=== PATIENT | female | born 1975 | race Caucasian/White ===

== ENCOUNTER → 2020-01-13 11:20 | Outpatient (CLI) | payer OTHER, MEDICAID, SELFPAY ==
[2020-01-13 12:28] LABS: COVID19 -Nasal RAPID Negative (Negative)
== END ==
PROVIDERS: PCP Naturopath; Visit Provider Physician Assistant
DX: Z01.812 Encounter for preprocedural laboratory examination (principal); L73.2 Hidradenitis suppurativa
CPT/HCPCS: 87070; 87205; 87635

== ENCOUNTER 2020-01-13 13:01 | Day surgery (SDC) | payer OTHER, MEDICAID, SELFPAY ==
[2020-01-13] VITALS (10 sets, daily range): BP systolic 111–151; BP diastolic 73–103; PULSE 87–108; RESP 14–20; TEMP 36.2–36.7; O2SAT 92–99; BMI 38.4
[2020-01-13] MEDS: LACTATED RINGERS 1,000 ML 100 ML IV (15:03)
--- NOTE | 2020-01-13 15:29 | SUR.OPER ---
Lithotomy on padded OR bed, head on pillow, arms secured on padded arm boards at <90 degrees abduction. Legs secured in padded yellow fins stirrups.
[2020-01-13 15:30] LABS: Add Manual Diff / Slide Review NO; Basophils Absolute Auto 0 /uL (0-100); Basophils Percent Auto 0.4 % (0-2); Eosinophils Absolute Auto 100 /uL (0-450); Hematocrit 48.1 % (36-46); Hemoglobin 16.5 g/dL (12.0-16.0); Lymphocytes Absolute Auto 3800 /uL (1100-4500); Lymphocytes Percent Auto 28.8 % (25-40); Mean Corpuscular HGB Conc 34.4 % (30-36); Mean Corpuscular Hemoglobin 31.9 PG (26-34); Mean Corpuscular Volume 92.7 fL (80-100); Monocytes Absolute Auto 900 /uL (0-900); Monocytes Percent Auto 6.9 % (3-14); Neutrophils Absolute Auto 8200 /uL (1500-7000); Neutrophils Percent Auto 62.9 % (50-75); Platelet Count 247 X10^3/uL (150-400); Red Blood Cell Count 5.19 X10^6/uL (4.0-5.2); Red Cell Distribution Width 14.7 % (11.6-14.8)
[2020-01-13 15:39] LABS: BUN Creatinine Ratio 13.2 (6-22); Blood Urea Nitrogen 9 mg/dL (7-17); Calcium 9.3 mg/dL (8.4-10.2); Carbon Dioxide 23 mmol/L (22-32); Chloride 106 mmol/L (98-107); Estimated Glomerular Filt Rate > 60.0 mL/min (>60); Glucose 86 mg/dL (70-100); Potassium 4.4 mmol/L (3.4-5.1); Sodium 136 mmol/L (137-145)
[2020-01-13 15:40] LABS: HEMOLYSIS 70 (0-50)
[2020-01-13] MEDS: CEFAZOLIN 2 GM/100 ML FROZ.PIGGY IV (15:51)
[2020-01-13] MEDS: BUPIVACAINE 0.25% (PF) VIAL 30 ML INJ (16:12)
--- NOTE | 2020-01-13 16:27 | P.OP_ITS ---
Operative Date/Time/Diagnoses Date of procedure: 01/13/20 Time of procedure: 15:15 Pre-op diagnosis: labial abscess Post-op diagnosis: same Procedure & Clinicians Procedure: Labial abscess incision and drainage Same procedure as scheduled: Yes Indications: labial abscess in the setting of Surgeon: Orin Weinberg Professor Of Music: Katie Gotti Anesthesia Type: Sedation Operative Notes Findings: Right labial abscess, draining small amount of purulent discharge. 1cm smaller in each dimension than on previous exam in clinic. Specimen(s): none sent Estimated Blood Loss (mL): 5 Procedure in detail: The patient was taken the operating room after informed consent was obtained. She was placed in the dorsal lithotomy position and prepped and draped in the usual sterile fashion. 2 cc of 0.25% Marcaine were injected into the skin over the area of planned incision. A 10 blade scalpel used to make a 1 cm incision over the indurated area through the site of prior drainage. A small amount of purulent discharge was drained from the skin, but no large abscess pocket was revealed on incision. A Orin clamp was gently inserted into the incision and spread in order to evaluate for hidden pockets of purulent drainage, but no such change was found. No further areas of fluctuance or palpable, just induration, which had decreased in size significantly from the exam in the office 4 hours prior. No abscess cavity was present to be packed, so the patient was taken to the PACU in stable condition. The patient tolerated the procedure well and received 2 g of Ancef at the beginning of the case. Culture had been sent from the office, no further cultures were collected. EBL: Minimal IVF: 250ccs LR UOP: N/A Complications: none Post-operative Condition: stable Disposition: PACU Plan for aftercare: Patient to be discharged home, continue her Bactrim, follow- up in clinic tomorrow.
[2020-01-13] MEDS: fentaNYL 100 MCG/2 ML INJ IV ×2 (16:49→16:56)
[2020-01-13] MEDS: OXYCODONE IR 5 MG TABLET PO (16:51)
== END 2020-01-13 18:17 | disposition home or self-care (01) ==
LOC: OR 13:06 → AC 13:08
PROVIDERS: PCP Naturopath; Referring Provider Obstetrics & Gynecology; Visit Provider Obstetrics & Gynecology
PROC: (CPT 56405; principal; 2020-01-13 14:30)
DX: N76.4 Abscess of vulva (principal); F17.210 Nicotine dependence, cigarettes, uncomplicated; I10 Essential (primary) hypertension; E78.5 Hyperlipidemia, unspecified; E11.9 Type 2 diabetes mellitus without complications; Z79.84 Long term (current) use of oral hypoglycemic drugs; Z01.812 Encounter for preprocedural laboratory examination; L73.2 Hidradenitis suppurativa; Z11.59 Encounter for screening for other viral diseases
CPT/HCPCS: 56405; 80048; 85025; 87070; 87205; 87635; J0690; J2250; J2704; J3010

== ENCOUNTER → 2022-01-02 08:11 | Outpatient (CLI) | payer BC, OTHER, MEDICAID, SELFPAY ==
[2022-01-02 10:09] LABS: COVID19 -Nasal RAPID Negative (Negative)
== END ==
PROVIDERS: PCP Naturopath; Visit Provider Obstetrics & Gynecology
DX: Z01.812 Encounter for preprocedural laboratory examination (principal); Z20.822 Contact with and (suspected) exposure to COVID-19
CPT/HCPCS: 87635

== ENCOUNTER 2022-01-03 12:00 | Observation (INO) | payer BC, OTHER, MEDICAID, SELFPAY ==
[2022-01-02] VITALS (13 sets, daily range): BP systolic 123–174; BP diastolic 69–100; PULSE 72–100; RESP 16–28; TEMP 35.7–37; O2SAT 93–97; BMI 36.1
--- NOTE | 2022-01-02 | PATH_ITS ---
[facility] Accession Number: [id number] No. of containers..01 Tissue . 01 Material submitted: . vulva - LEFT LABIAL NEVUS . 01 Clinical history: . I/D OF VULVA ABSCESS *OPB* ABSCESS OF VULVA . 01 Diagnosis: Left Labial Lesion, Biopsy: Pigmented seborrheic keratosis. MRV 01/04/2022 1019 Local . 01 Comment: This case is also reviewed by dermatopathologist, Dr. Josh Beckett, who concurs with the given interpretation. . 01 Electronically signed: . Lu Austin MD, Pathologist NPI- [id number] . 01 Gross description: . LEFT LABIAL NEVUS: Received in formalin is 1 fragment of gupta soft tissue measuring 1.3 x 0.5 x 0.4 cm. Tissue is inked. Specimen is sectioned and submitted in its entirety in 1 cassette. /CATY 01/03/20222006 Local . 01 Pathologist provided ICD-10: L82.1 . 01 CPT . 896735 Specimen Comment: A courtesy copy of this report has been sent to [phone] Performed at: [address] [facility] [address] [place] [address] [address], [place], [place] [id number] MD Dequan Regalado MD Phone: [phone]
[2022-01-02] MEDS: LACTATED RINGERS 1,000 ML 100 ML IV (11:06)
[2022-01-02 11:23] LABS: Basophils Absolute Auto 100 /uL (0-100); Basophils Percent Auto 0.4 % (0-2); Eosinophils Absolute Auto 100 /uL (0-450); Eosinophils Percent Auto 1.1 % (2-4); Hematocrit 48.5 % (36-46); Hemoglobin 16.8 g/dL (12.0-16.0); Lymphocytes Absolute Auto 3800 /uL (1100-4500); Lymphocytes Percent Auto 32.3 % (25-40); Mean Corpuscular HGB Conc 34.6 % (30-36); Mean Corpuscular Hemoglobin 31.5 PG (26-34); Mean Corpuscular Volume 91.2 fL (80-100); Monocytes Absolute Auto 800 /uL (0-900); Monocytes Percent Auto 7.3 % (3-14); Neutrophils Absolute Auto 6800 /uL (1500-7000); Neutrophils Percent Auto 58.9 % (50-75); Platelet Count 248 X10^3/uL (150-400); Red Blood Cell Count 5.32 X10^6/uL (4.0-5.2); Red Cell Distribution Width 13.8 % (11.6-14.8); White Blood Cell Count 11.6 X10^3/uL (4.5-11.0)
[2022-01-02 11:26] LABS: Add Manual Diff / Slide Review SLIDE REVIEW
[2022-01-02 11:37] LABS: Alanine Aminotransferase 33 IU/L (<35); Albumin 4.2 g/dL (3.5-5.0); Albumin Globulin Ratio 1.4 (1.0-2.8); Alkaline Phosphatase 205 U/L (38-126); Aspartate Aminotransferase 29 IU/L (14-36); BUN Creatinine Ratio 13.6 (6-22); Bilirubin Total 0.5 mg/dL (0.2-1.3); Blood Urea Nitrogen 9 mg/dL (7-17); Calcium 8.7 mg/dL (8.4-10.2); Carbon Dioxide 24 mmol/L (22-32); Chloride 103 mmol/L (98-107); Estimated Glomerular Filt Rate > 60 mL/min (>60); Glucose 241 mg/dL (70-100); HEMOLYSIS < 15 (0-50); Potassium 4.1 mmol/L (3.4-5.1); Sodium 134 mmol/L (137-145); Total Protein 7.2 g/dL (6.3-8.2)
[2022-01-02 11:58] LABS: RBC Morphology Normal Morphology
--- NOTE | 2022-01-02 12:01 | SUR.PREOP ---
1140 Dr. Camacho informerd about blood sugar.
--- NOTE | 2022-01-02 12:27 | P.HP_ITS ---
History of Present Illness History of Present Illness Date Patient Seen: 01/02/22 Time Patient Seen: 12:27 Chief complaint: I&D OF VULVAR ABSCESS *OPB* Narrative: Patient is a 46-year-old 0 who presents today with a right labial abscess. She was seen by her primary care provider 5 days ago and this was opened. She was seen 4 days ago and was placed on antibiotics, Bactrim, and continues to take those. She was seen yesterday and the swelling was down a bit but the redness is worse. She is a type 2 diabetic. She is on a 1000 mg b.i.d. of metformin as well as glipizide once a day. She is not sure of that dose. She also is not sure what her most recent hemoglobin A1c is. She reports that her fasting blood sugars run high 100s to low 200s. She has a Mirena IUD in place to control her menstrual cycle. She has no history of MRSA. She took her last dose of metformin at 6:00 p.m. yesterday. She ate at 7:30 p.m. last evening. She has had a small amount of water since. Patient History Surgical History History of appendectomy Family & Social History Social History: household members spouse,family Tobacco & Substance use: Smoking Status Current every day smoker Smoking packs per day 1 alcohol intake frequency holiday/special occasion Substance Use Type does not use Meds Home Medications and Allergies Home Medications Medication Instructions Recorded Confirmed Type acetaminophen 500 mg tablet 500 mg PO Q6H PRN Pain (Scale 01/13/20 01/02/22 History Score 1-3) atorvastatin 40 mg tablet 40 mg PO DAILY 01/13/20 01/02/22 History clotrimazole-betamethasone 1 1 applictn topical BID 01/13/20 01/02/22 History %-0.05 % topical cream cyclobenzaprine 5 mg tablet 5 mg PO TID PRN Pain (Scale Score 01/13/20 01/02/22 History 1-3) ergocalciferol (vitamin D2) 1,250 1,250 mcg PO QWEEK 01/13/20 01/02/22 History mcg (50,000 unit) capsule fluoxetine 40 mg capsule 40 mg PO BID 01/13/20 01/02/22 History gabapentin 300 mg capsule 300 mg PO TID PRN Pain (Scale 01/13/20 01/02/22 History Score 1-3) glipizide 10 mg tablet 10 mg PO DAILY 01/13/20 01/02/22 History ibuprofen 800 mg tablet 800 mg PO TID PRN Pain (Scale 01/13/20 01/02/22 History Score 4-6) liraglutide 0.6 mg/0.1 mL (18 mg/3 0.6 mg SUBCUT DAILY 01/13/20 01/02/22 History mL) subcutaneous pen injector (Kadmonza 2-Jerel) metformin 500 mg tablet 1,000 mg PO BID 01/13/20 01/02/22 History omeprazole 20 mg capsule,delayed 20 mg PO BID PRN Indigestion 01/13/20 01/02/22 History release oxycodone 5 mg tablet 5 mg PO Q6H PRN pain #10 tabs 01/13/20 01/02/22 Rx sulfamethoxazole 800 1 tab PO BID 01/13/20 01/02/22 History mg-trimethoprim 160 mg tablet clindamycin phosphate 1 % topical 1 applictn topical BID 01/19/20 01/02/22 Rx gel Hidradenitis suppurativa #30 grams doxycycline hyclate 100 mg capsule 100 mg PO BID hidradenitis 01/23/20 01/02/22 Rx supperativa #60 caps Allergies Allergy/AdvReac Type Severity Reaction Status Date / Time morphine AdvReac Dysphoric Verified 01/25/20 15:50 Exam Vital Signs (past 8 hours): - 01/02/22 10:36 Temperature 97 F L Pulse Rate 97 H Respiratory Rate 16 Blood Pressure 136/88 Pulse Oximetry 97 Oxygen Delivery Method Room Air Oxygen Delivery Method Room Air Narrative Exam Narrative: HEENT: [No thyromegaly, no anterior cervical or supraclavicular lymphadenopathy.] Lungs:[Clear to auscultation bilaterally, no wheezes.] Cardiovascular: [Regular rate and rhythm, no murmurs, rubs, or gallops]. Abdomen: [Well-healed scars. No hepatosplenomegaly. No masses palpable.] External genitalia: The right labia minora is swollen and erythematous. It is tender to touch. There is fluctuance. There is a small open area from the previous incision and drainage. Patient also has erythematous areas with satellite lesions in the inguinal folds. Vagina: Did not exam Cervix: Did not exam Bimanual exam: Did not exam Extremities: No edema Objective Labs Result Diagrams: 01/02/22 10:50 01/02/22 10:50 Labs: Laboratory Results - last 24 hr 01/02/22 01/02/22 10:50 10:50 WBC 11.6 H RBC 5.32 H Hgb 16.8 H Hct 48.5 H MCV 91.2 MCH 31.5 MCHC 34.6 RDW 13.8 Plt Count 248 Neut % (Auto) 58.9 Lymph % (Auto) 32.3 Logan % (Auto) 7.3 Eos % (Auto) 1.1 L Baso % (Auto) 0.4 Neut # (Auto) 6800 Lymph # (Auto) 3800 [place] # (Auto) 800 Eos # (Auto) 100 Baso # (Auto) 100 RBC Morphology Normal morphology Sodium 134 L Potassium 4.1 Chloride 103 Carbon Dioxide 24 BUN 9 Creatinine 0.66 Estimated GFR > 60 BUN/Creatinine Ratio 13.6 Glucose 241 H Calcium 8.7 Total Bilirubin 0.5 AST 29 ALT 33 Alkaline Phosphatase 205 H Total Protein 7.2 Albumin 4.2 Globulin 3.0 Albumin/Globulin Ratio 1.4 Assessment & Plan Assessment & Plan narrative: Assessment: 46-year-old 0 with a right labial abscess and poorly controlled diabetes Yeast of the vulva Plan: Incision and drainage and possible packing of abscess IV antibiotics Will sent home with yeast treatment Possible overnight hospital stay The risks, benefits, and alternatives to the procedure were explained to the patient. The risks including bleeding and infection. She understands these risks and agrees to proceed. A full par Q was held and consent form was signed. COVID-19 COVID-19 status: Negative Result date/Date tested (Pos, Neg/Pending): 01/02/22 Time Spent With Patient Time with patient: less than 30 minutes Critical Care time: I spent a total of [] minutes of critical care time on this patient's care today; this time is exclusive of procedural time.
--- NOTE | 2022-01-02 12:27 | PM.GYNOP.1 ---
Operative Date/Time/Diagnoses Date of procedure: 01/02/22 Time of procedure: 14:26 Pre-op diagnosis: Right labia minora abscess Suspicious mole on the left labia Post-op diagnosis: same Procedure & Clinicians Procedure: Procedures Operation Date: 01/02/22 12:00 <No data on this case meets the specified criteria> Indications: Abscess of the right labia minora Suspicious 1 cm mole on the left labia minora Surgeon: Katie Gotti Anesthesia Type: General Operative Notes Findings: 8 cm her by 5 cm by 3 cm abscess in the right labia minora 1 cm x 0.75 cm nevus of the left labia minora Closure Type: not applicable Specimen(s): other (Cultures of the abscess) Estimated blood loss (mL): 10 Blood products transfused: none Procedure in detail: After informed consent was obtained, the patient was taken to the operating room where she was placed in the dorsal supine position. After adequate general endotracheal anesthesia was achieved, she was placed in the dorsal lithotomy position, and prepped and draped in the usual sterile fashion. A time-out was performed. On the left labia an elliptical incision was made measuring 1.5 x 1 cm to include the nevus. The nevus was excised. Four simple interrupted sutures with 4-0 Vicryl were placed to reapproximate. In the midportion of the right labia minora there was a small opening with pus. This was extended to 3 cm. A large amount of pus extruded from the wound. Cultures were obtained. A hemostat was used to break up any smaller pockets. The area was irrigated with a L of sterile saline. The wound was packed with approximately 14 in of 1 in iodoform gauze. There was a small area that was bleeding from the lower edge of the incision. This was cauterized with the Bovie for hemostasis. Sponge, lap, and instrument counts were correct x2. The patient tolerated the procedure well, and was taken to PACU in stable condition. Complications: none Post-operative Condition: stable Disposition: PACU Plan for aftercare: To acute care after recovery
--- NOTE | 2022-01-02 12:32 | PM.PREOP ---
Pre-operative Note COVID-19 COVID-19 status: Negative Result date/Date tested (Pos, Neg/Pending): 01/02/22 Criteria for continued procedure: Deterioration of the patient's condition or overall health and Non-surgical alternatives not available or appropriate per current SOC Interval Note History & Physical reviewed/Exam performed by Physician: Yes Changes to H&P: No H&P completed within 30 days and has changed as indicated here:: 01/02/22
[2022-01-02] MEDS: INSULIN REGULAR 100 UNIT/ML 3 ML VIAL SUBCUT (12:42)
[2022-01-02] MEDS: FAMOTIDINE 20 MG/2 ML VIAL IV (12:44)
--- NOTE | 2022-01-02 13:29 | SUR.OPER ---
Lithotomy on padded OR bed, head on pillow, arms secured on padded arm boards at <90 degrees abduction. Legs secured in padded yellow fins stirrups. Patients glasses placed in black glass case with patient ID label. While on or table, pt voided during intubation, mio care provided prior to sterile prep.
[2022-01-02] MEDS: EPINEPHrine 1 MG/ML 0.15 MG INJ (13:33)
[2022-01-02] MEDS: BUPIVACAINE 0.5% (PF) VIAL 30 ML INJ (13:34)
[2022-01-02] MEDS: PIPERACILLIN/TAZO 4.5 GM in SODIUM CHLORIDE 0.9% 100 ML IV (13:35)
[2022-01-02] MEDS: LACTATED RINGERS 1,000 ML 42 ML IV ×2 (14:07→14:13)
[2022-01-02] MEDS: ALBUTEROL 2.5 MG/3 ML NEB (ADULT) INH (14:09)
[2022-01-02] MEDS: ONDANSETRON 4 MG/2 ML INJ IV (14:12)
[2022-01-02] MEDS: fentaNYL 100 MCG/2 ML INJ IV ×2 (14:12→14:22)
--- NOTE | 2022-01-02 14:25 | SUR.PHASEI ---
Duoneb completed; patient in no distress and maintaining oxygen saturation at 94% on room air. Drinking water without difficulty.
--- NOTE | 2022-01-02 14:34 | SUR.PHASEI ---
Notified Anesthesia of Blood sugar 211; no new orders. Anesthesia defers to inpatient orders on transfer. No insulin ordered for pacu.
[2022-01-02] MEDS: OXYCODONE/ACETAMINOPHEN 5/325 TABLET 1 TAB PO (14:39)
--- NOTE | 2022-01-02 15:51 | PC.NURSE ---
admit pt to AC from PACU. VSS. bloody drainage to mio-pad, changed with new mesh pad/mio-pad placed. ice pack for comfort. Tail of packing to labia apparent. Per pt is having procedure 01/03 @ 1000 to have packing removed/replaced by . Supportive spouse at bedside. ADA nutrition provided to pt. Pt oriented to call light and plan of care.
[2022-01-02] MEDS: NICOTINE 21 MG PATCH TOP (16:24)
[2022-01-02] MEDS: KETOROLAC 30 MG/ML VIAL IV ×2 (16:25→20:46)
[2022-01-02] MEDS: OXYCODONE IR 5 MG TABLET 10 MG PO (16:25)
[2022-01-02] MEDS: SODIUM CHLORIDE 0.9% 1,000 ML 100 ML IV (16:25)
[2022-01-02] MEDS: INSULIN LISPRO 100 UNIT/ML 3ML VIAL SUBCUT ×2 (17:20→21:14)
--- NOTE | 2022-01-02 17:40 | PM.CN ---
History of Present Illness Consult details Date Patient Seen: 01/02/22 Chief complaint: I&D OF VULVAR ABSCESS *OPB* Reason for consult: Diabetes mellitus type 2, uncontrolled Requesting provider: Katie Gotti Narrative: 46-year-old female with diabetes mellitus type 2, hidradenitis suppurativa, ongoing tobacco dependence, and class 2 obesity who presented to the emergency department for incision and drainage of a right labia minora abscess. Reports onset of hidradenitis symptoms when she was approximately 13-year-old. She states that she has required a prior labia abscess incision and drainage. She has had some that affected her at [facility] she was able to treat Omron. With regard to her current abscess, she reports that it started several months ago and she initially thought it was a blocked pore. She left it alone but approximately 5 days ago, her labia swelled, became more red and indurated. She was seen in the clinic and underwent I and D in the office. She was given a prescription for an antibiotic and pain medications. When they drained it, reportedly it was purulent material. It was not passed and she return for follow-up the following day and notes that the labia was much more swollen indurated and painful. There was not a repeat I&D performed. She was then given a prescription for Bactrim and some additional pain medications. She will return to the clinic yesterday with ongoing symptoms. She was subsequently referred to Dr. Gotti who evaluated the ends brought the patient into the hospital for an incision and drainage in the operating room. Patient reports that she was diagnosed with diabetes mellitus in 2013. She has never required insulin. She states her last hemoglobin A1c was around 6.9-7.1. She reports it has been quite sometime since she had an A1c done. She does not tolerate metformin well but has been on glipizide and Victoza. She states that sugars ranged from 90s to 100 in the morning but up to the mid 200s in the afternoons. She is an active smoker, 1 pack per day. Meds Home Medications and Allergies Home Medications Medication Instructions Recorded Confirmed Type acetaminophen 500 mg tablet 500 mg PO Q6H PRN Pain (Scale 01/13/20 01/02/22 History Score 1-3) atorvastatin 40 mg tablet 40 mg PO DAILY 01/13/20 01/02/22 History clotrimazole-betamethasone 1 1 applictn topical BID 01/13/20 01/02/22 History %-0.05 % topical cream cyclobenzaprine 5 mg tablet 5 mg PO TID PRN Pain (Scale Score 01/13/20 01/02/22 History 1-3) ergocalciferol (vitamin D2) 1,250 1,250 mcg PO QWEEK 01/13/20 01/02/22 History mcg (50,000 unit) capsule fluoxetine 40 mg capsule 40 mg PO BID 01/13/20 01/02/22 History gabapentin 300 mg capsule 300 mg PO TID PRN Pain (Scale 01/13/20 01/02/22 History Score 1-3) glipizide 10 mg tablet 10 mg PO DAILY 01/13/20 01/02/22 History ibuprofen 800 mg tablet 800 mg PO TID PRN Pain (Scale 01/13/20 01/02/22 History Score 4-6) liraglutide 0.6 mg/0.1 mL (18 mg/3 0.6 mg SUBCUT DAILY 01/13/20 01/02/22 History mL) subcutaneous pen injector ([employer] 2-Jerel) metformin 500 mg tablet 1,000 mg PO BID 01/13/20 01/02/22 History omeprazole 20 mg capsule,delayed 20 mg PO BID PRN Indigestion 01/13/20 01/02/22 History release oxycodone 5 mg tablet 5 mg PO Q6H PRN pain #10 tabs 01/13/20 01/02/22 Rx sulfamethoxazole 800 1 tab PO BID 01/13/20 01/02/22 History mg-trimethoprim 160 mg tablet clindamycin phosphate 1 % topical 1 applictn topical BID 01/19/20 01/02/22 Rx gel Hidradenitis suppurativa #30 grams doxycycline hyclate 100 mg capsule 100 mg PO BID hidradenitis 01/23/20 01/02/22 Rx supperativa #60 caps Allergies Allergy/AdvReac Type Severity Reaction Status Date / Time morphine AdvReac Dysphoric Verified 01/25/20 15:50 Review of Systems Review of Systems Narrative: All other systems were reviewed negative Exam Vital Signs (past 8 hours): - 01/02/22 10:36 01/02/22 14:01 01/02/22 14:05 Temperature 97 F L 97 F L Pulse Rate 97 H 93 H 95 H Respiratory Rate 16 28 H 21 Blood Pressure 136/88 139/90 146/91 H Pulse Oximetry 97 93 96 Oxygen Delivery Method Room Air Room Air Room Air Oxygen Flow Rate 01/02/22 14:10 01/02/22 14:15 01/02/22 14:20 Temperature Pulse Rate 89 89 91 H Respiratory Rate 22 18 22 Blood Pressure 152/93 H 141/85 H 153/92 H Pulse Oximetry 95 94 94 Oxygen Delivery Method Simple Mask Simple Mask Room Air Oxygen Flow Rate 5 01/02/22 14:31 01/02/22 15:00 01/02/22 15:29 Temperature 98.6 F 97.9 F Pulse Rate 100 H 92 H 72 Respiratory Rate 23 17 17 Blood Pressure 162/89 H 174/100 H 148/69 H Pulse Oximetry 95 96 96 Oxygen Delivery Method Room Air Oxygen Flow Rate 0 0 01/02/22 15:57 01/02/22 10:07 01/02/22 17:00 Temperature 96.3 F L 98.3 F Pulse Rate 94 H 92 H Respiratory Rate 18 17 Blood Pressure 123/87 142/78 H Pulse Oximetry 94 95 Oxygen Delivery Method Room Air Oxygen Flow Rate 0 0 Oxygen Delivery Method Room Air Oxygen Flow Rate 0 Narrative Exam Narrative: GEN: Adult female, pleasant, Alert and oriented x3, no acute distress HEENT: Normocephalic, face symmetric, pupils equal round reactive to light, extraocular movements intact, sclerae anicteric, conjunctiva clear, nares patent, oropharynx reveals an intact soft and hard palate with moist mucous membranes, dentition is fair, hirsutism is noted NECK: Supple, no lymphadenopathy, thyroid without enlargement or nodularity, carotids no bruits CHEST: Respiratory excursions symmetric, clear to auscultation bilaterally CV: Regular rate and rhythm, no murmurs, rubs, gallops, PMI difficult to palpate ABD: Soft, nontender, nondistended, bowel sounds present in all 4 quadrants, body habitus limits exam EXTR: Warm, well perfused, no clubbing/cyanosis/edema SKIN: Warm and dry, without rash, old scars from previous hidradenitis cyst in the ex the left, current abscess was not visualized NEURO: Alert and oriented x3, cranial nerves 2 through 12 are intact and symmetric bilaterally, motor strength 5/5 throughout, sensation intact throughout PSYCH: Mood and affect is within normal limits, judgment and insight are appropriate Objective Labs Result Diagrams: 01/02/22 10:50 01/02/22 10:50 Labs: Laboratory Results - last 24 hr 01/02/22 01/02/22 10:50 10:50 WBC 11.6 H RBC 5.32 H Hgb 16.8 H Hct 48.5 H MCV 91.2 MCH 31.5 MCHC 34.6 RDW 13.8 Plt Count 248 Neut % (Auto) 58.9 Lymph % (Auto) 32.3 [place] % (Auto) 7.3 Eos % (Auto) 1.1 L Baso % (Auto) 0.4 Neut # (Auto) 6800 Lymph # (Auto) 3800 [place] # (Auto) 800 Eos # (Auto) 100 Baso # (Auto) 100 RBC Morphology Normal morphology Sodium 134 L Potassium 4.1 Chloride 103 Carbon Dioxide 24 BUN 9 Creatinine 0.66 Estimated GFR > 60 BUN/Creatinine Ratio 13.6 Glucose 241 H Calcium 8.7 Total Bilirubin 0.5 AST 29 ALT 33 Alkaline Phosphatase 205 H Total Protein 7.2 Albumin 4.2 Globulin 3.0 Albumin/Globulin Ratio 1.4 [facility] Surgical History History of appendectomy Comment: Past medical history: Hidradenitis suppurativa Diabetes mellitus type 2, not insulin dependent Class 2 obesity Active tobacco dependence Family history: Mother, maternal grandparents and maternal aunt all had diabetes Social history: She and her partner have been together for 9 years. She has no children. One pack of cigarettes daily for 25 years. She does not drink, no recreational drug use.. Social History household members: spouse and family Tobacco & Substance Use Smoking Status: Current every day smoker alcohol intake: current Assessment & Plan Assessment & Plan narrative: 1. Hidradenitis suppurativa with a luis right labial abscess status post I&D On going antibiotics and treatment per Gynecology. She is currently receiving Zosyn therapy. White blood cell count 11.6. Appears nontoxic. Cultures pending. 2. Diabetes mellitus type 2, treated with oral medication Presently uncontrolled with hyperglycemia. Glucose was 241 on today's labs. Will place on a controlled carb diet. Fingersticks and sliding scale have been ordered. Will hold glipizide, Metformin and Victoza for now. Will send a hemoglobin A1c 3. Class 2 obesity BMI is 36.1. Would benefit from weight reduction. 4. Tobacco dependence Nicotine patch has been ordered. 5. Hyperlipidemia Continue atorvastatin. 6. Chronic neck pain with right arm paresthesia She has had a prior neck fusion. She reports some right arm Paresthesias which are chronic in nature. 7. Depression Continue outpatient dose of fluoxetine Code status Full Prophylaxis Low Adri score Disposition Per Dr. Gotti/[employer] service. Time Spent With Patient Critical Care time: I spent a total of [] minutes of critical care time on this patient's care today; this time is exclusive of procedural time.
--- NOTE | 2022-01-02 18:11 | PC.NURSE ---
Pt is AxOx4, 1 person assistance to the bedside commode. VSS, BP is lighlty high 160s, HR is tachy due to pain. pt c/o pain in her incision area ( vagina/R labia) and PRN Toradol IV and Oxycodone 10mg PO given with good effect. BG-332 bc pt ate something before dinner came. 4 units of Lispro given and pt ate 100%. Pt has Nicotine patch on and RA. Otherwise, pt is doing well. Last BM on 01/02. No other changes.
[2022-01-02 18:21] LABS: Hemoglobin A1C% w Est Avg Glu 10.6 % (4.0-6.0)
[2022-01-02] MEDS: PIPERACILLIN/TAZO 3.375 GM in SODIUM CHLORIDE 0.9% 100 ML IV (20:46)
[2022-01-02] MEDS: FLUoxetine 20 MG CAPSULE 40 MG PO (20:47)
[2022-01-02] MEDS: DOCUSATE 100 MG CAPSULE 200 MG PO (20:47)
[2022-01-03] VITALS (15 sets, daily range): BP systolic 130–160; BP diastolic 68–95; PULSE 78–90; RESP 16–20; TEMP 35.9–36.8; O2SAT 94–98; BMI 36.1
[2022-01-03] MEDS: OXYCODONE/ACETAMINOPHEN 5/325 TABLET 1 TAB PO ×2 (00:38→08:18)
[2022-01-03] MEDS: KETOROLAC 30 MG/ML VIAL IV ×3 (04:27→20:06)
[2022-01-03] MEDS: PIPERACILLIN/TAZO 3.375 GM in SODIUM CHLORIDE 0.9% 100 ML IV ×3 (04:27→20:58)
[2022-01-03] MEDS: SODIUM CHLORIDE 0.9% 1,000 ML 100 ML IV ×2 (04:31→17:43)
--- NOTE | 2022-01-03 05:09 | PM.PN.1 ---
Subjective Subjective Date Patient Seen: 01/03/22 Time Patient Seen: 14:00 Interval history: Patient having pain after surgery and requesting Toradol. Would also like nicotine patch. Exam Vital Signs (past 8 hours): - 01/03/22 04:44 Temperature 98.1 F Pulse Rate 81 Respiratory Rate 16 Blood Pressure 155/87 H Pulse Oximetry 94 Oxygen Flow Rate 0 Oxygen Delivery Method Room Air Oxygen Flow Rate 0 Narrative Exam Narrative: GEN: Adult female, pleasant, Alert and oriented x3, no acute distress HEENT: Normocephalic, face symmetric, pupils equal round reactive to light, extraocular movements intact, sclerae anicteric, conjunctiva clear, nares patent, oropharynx reveals an intact soft and hard palate with moist mucous membranes, dentition is fair, hirsutism is noted NECK: Supple, no lymphadenopathy, thyroid without enlargement or nodularity, carotids no bruits CHEST: Respiratory excursions symmetric, clear to auscultation bilaterally CV: Regular rate and rhythm, no murmurs, rubs, gallops, PMI difficult to palpate ABD: Soft, nontender, nondistended, bowel sounds present in all 4 quadrants, body habitus limits exam EXTR: Warm, well perfused, no clubbing/cyanosis/edema SKIN: Warm and dry, without rash, old scars from previous hidradenitis cyst in the ex the left, current abscess was not visualized NEURO: Alert and oriented x3, cranial nerves 2 through 12 are intact and symmetric bilaterally, motor strength 5/5 throughout, sensation intact throughout PSYCH: Mood and affect is within normal limits, judgment and insight are appropriate Objective Labs Result Diagrams: 01/03/22 05:45 01/02/22 10:50 Labs: Laboratory Results - last 24 hr 01/02/22 01/02/22 01/02/22 10:50 10:50 15:50 WBC 11.6 H RBC 5.32 H Hgb 16.8 H Hct 48.5 H MCV 91.2 MCH 31.5 MCHC 34.6 RDW 13.8 Plt Count 248 Neut % (Auto) 58.9 Lymph % (Auto) 32.3 [place] % (Auto) 7.3 Eos % (Auto) 1.1 L Baso % (Auto) 0.4 Neut # (Auto) 6800 Lymph # (Auto) 3800 [place] # (Auto) 800 Eos # (Auto) 100 Baso # (Auto) 100 RBC Morphology Normal morphology Sodium 134 L Potassium 4.1 Chloride 103 Carbon Dioxide 24 BUN 9 Creatinine 0.66 Estimated GFR > 60 BUN/Creatinine Ratio 13.6 Glucose 241 H Hemoglobin A1c 10.6 H Calcium 8.7 Total Bilirubin 0.5 AST 29 ALT 33 Alkaline Phosphatase 205 H Total Protein 7.2 Albumin 4.2 Globulin 3.0 Albumin/Globulin Ratio 1.4 PFSH Surgical History History of appendectomy Social History household members: spouse and family Smoking Status: Current every day smoker alcohol intake: current Assessment & Plan Assessment & Plan narrative: 1. Hidradenitis suppurativa with a luis right labial abscess status post I&D On going antibiotics and treatment per Gynecology. She is currently receiving Zosyn therapy. White blood cell count 11.6. Appears nontoxic. Cultures pending. -Start toradol IV q6h PRN 2. Diabetes mellitus type 2, treated with oral medication Presently uncontrolled with hyperglycemia. Glucose was 241 on today's labs. Will place on a controlled carb diet. Fingersticks and sliding scale have been ordered. Will hold glipizide, Metformin and Victoza for now. -A1c 10.6% -Start lantus 15u daily -Diabetes education consulted -Recommend outpatinet follow-up with endocrinology for ongoing DM2 management and obtaining CGM device. 3. Class 2 obesity BMI is 36.1. Would benefit from weight reduction. 4. Tobacco dependence Nicotine patch has been ordered. 5. Hyperlipidemia Continue atorvastatin. 6. Chronic neck pain with right arm paresthesia She has had a prior neck fusion. She reports some right arm Paresthesias which are chronic in nature. 7. Depression Continue outpatient dose of fluoxetine. Code status Full Prophylaxis Low Adri score Disposition D/c on 01/[address] Gotti. Time Spent With Patient Critical Care time: I spent a total of [] minutes of critical care time on this patient's care today; this time is exclusive of procedural time. Quality VTE Deep Vein Thrombosis/Pulmonary Embolism Present on Admission: Yes
[2022-01-03 06:14] LABS: Add Manual Diff / Slide Review NO; Basophils Absolute Auto 100 /uL (0-100); Basophils Percent Auto 0.5 % (0-2); Eosinophils Absolute Auto 100 /uL (0-450); Eosinophils Percent Auto 0.7 % (2-4); Hematocrit 44.8 % (36-46); Hemoglobin 15.3 g/dL (12.0-16.0); Lymphocytes Absolute Auto 3300 /uL (1100-4500); Lymphocytes Percent Auto 27.9 % (25-40); Mean Corpuscular HGB Conc 34.2 % (30-36); Mean Corpuscular Hemoglobin 31.5 PG (26-34); Mean Corpuscular Volume 92.2 fL (80-100); Monocytes Absolute Auto 900 /uL (0-900); Monocytes Percent Auto 7.5 % (3-14); Neutrophils Absolute Auto 7400 /uL (1500-7000); Neutrophils Percent Auto 63.4 % (50-75); Platelet Count 202 X10^3/uL (150-400); Red Blood Cell Count 4.86 X10^6/uL (4.0-5.2); Red Cell Distribution Width 13.8 % (11.6-14.8); White Blood Cell Count 11.7 X10^3/uL (4.5-11.0)
[2022-01-03] MEDS: LACTATED RINGERS 1,000 ML 84 ML IV (10:14)
--- NOTE | 2022-01-03 10:32 | PM.PREOP ---
Pre-operative Note COVID-19 COVID-19 status: Negative Result date/Date tested (Pos, Neg/Pending): 01/02/22 Criteria for continued procedure: Non-surgical alternatives not available or appropriate per current SOC Interval Note History & Physical reviewed/Exam performed by Physician: Yes Changes to H&P: No H&P completed within 30 days and has changed as indicated here:: 01/02/22
--- NOTE | 2022-01-03 10:56 | SUR.OPER ---
Lithotomy on padded OR bed, head on pillow, arms secured on padded arm boards at <90 degrees abduction. Legs secured in padded yellow fins stirrups.
--- NOTE | 2022-01-03 11:00 | PM.GYNOP.1 ---
Operative Date/Time/Diagnoses Date of procedure: 01/03/22 Time of procedure: 11:01 Pre-op diagnosis: Right labial abscess Post-op diagnosis: same Procedure & Clinicians Procedure: Procedures Operation Date: 01/02/22 12:00 Actual Procedure Side Surgeon p Incision and Drainage of Right Labial Abscess and Excision of Left labial Nevus Katie Gotti MD Operation Date: 01/03/22 10:15 Actual Procedure Side Surgeon p removal and exchange of packing change Katie Gotti MD Indications: Packing in a right labial abscess Surgeon: Katie Gotti Anesthesia Type: Sedation Operative Notes Findings: Small improvement from yesterday Closure Type: not applicable Specimen(s): none Estimated blood loss (mL): 0 Blood products transfused: none Procedure in detail: After informed consent was obtained, the patient was taken to the operating room where she was placed in the dorsal supine position. After adequate IV sedation, the patient was placed in the dorsal lithotomy position, and prepped and draped in the usual sterile fashion. The previous packing was removed. The wound was irrigated with 180 cc sterile saline. The wound was probed to make sure there were no new pockets. The wound was packed with 14 in of 1 in iodoform gauze. Complications: none Post-operative Condition: stable Disposition: PACU Plan for aftercare: To acute care after recovery
[2022-01-03] MEDS: OXYCODONE IR 5 MG TABLET 10 MG PO (11:13)
--- NOTE | 2022-01-03 11:27 | SUR.PHASEI ---
Report called to Elizabeth RAMIREZ and opportunity for questions given. Pt returning to room 213. pt updated on plan of care and is agreeable.
[2022-01-03] MEDS: INSULIN LISPRO 100 UNIT/ML 3ML VIAL SUBCUT ×3 (12:30→20:59)
[2022-01-03] MEDS: NICOTINE 21 MG PATCH TOP (12:41)
--- NOTE | 2022-01-03 12:47 | CM.DANOTE ---
Addendum entered by Jo-Ann Hong 01/03/22 15:28: DCP continued note Dr. Gotti endorses that she put in wound care referral and the next available appt for patient is 01/11/22 at 13:45. It is reported that patient will likely d/c tomorrow and receive daily wound care by OBGYN clinic until wound care appt. MEDICAL OFFICER calls wound care clinic and inquires about the above appt, it is reported that the time is blocked for patient and they are in need of wound care referral. MEDICAL OFFICER faxes wound care orders from Dr. Gotti with face sheet. Plan: f/u with wound care (ext. [phone]) to see if anything further is needed regarding wound care referral. Patient likely to d/c tomorrow. GARO Cohn Original Note: DCP Assessment Patient is 46 y/o female who had labial abscess surgery on 01/03/[address] Gotti. Patient has hx of type 2 diabetes. Patient's PCP is Dr. Skylar Cespedes. Patient has [employer] and Medicaid insurance. MEDICAL OFFICER enters room to meet with patient, present is patient's spouse Valeria. Patient presents as A/Ox3 and states she is doing alright. Patient is independent with ADLs at baseline. Spouse and patient endorse that Dr. Gotti spoke to them about referrals for outpatient wound care. Patient denies further DCP needs at this time. Spouse endorses that she can care for patient's needs. Plan: patient to d/c to home with spouse upon medical clearance, possibly today. Patient to f/u with wound care referral. No further DCP needs at this time. GARO Cohn Discharge Planning/Care Management CM Discharge Assessment Start: 01/03/22 12:32 Freq: Status: Active Protocol: Document 01/03/22 12:33 LN (Rec: 01/03/22 12:47 LN [id number]) Discharge Planning Assessment Assigned Outreach Specialist GARO Busch Advance Directives? No History Provided By Patient,Family Member,Medical Record Has Patient been admitted in last 30 No days? Prior Living Arrangements House Household Members spouse,family Type of transportation used prior to Drives own vehicle admit Independent with ADL's Yes: at baseline Is patient alert and oriented? Yes Needs Assistance With Grooming Comment Patient will need assistance with wound care and cleaning. Per patient, Dr. Gotti has been working on arranging out patient wound care. Caregiver for Another No Please Provide Date Initial DC 01/03/22 Assessment Was Performed
--- NOTE | 2022-01-03 15:26 | DIET.CONS2 ---
Dietary Inpatient Consultation Note Admission Date: 01/03/2022 12:00 Attempted to visit c pt after lunch, pt sleeping, pt spouse requests coming back in an hour. Plan to visit c pt at 3:45pm for DM ed. Diet: 01/03/22 Lunch Carbohydrate Consistent Diet Diet Modifications: Carbohydrate level: Medium (3 CHO) Bedtime snack: Yes 01/04/22 00:01 NPO Diet Diet Modifications: NPO Type: NPO except for Ice Chips Nutrition Percent Meal Consumed 100% 01/03/22 13:00 Percent Meal Consumed 100% 01/02/22 17:27 Electronically Signed by: Elsa Deshpande 01/03/22 15:26 Clinical Dietitian [address] [address]
--- NOTE | 2022-01-03 15:44 | PC.NURSE ---
Pt was in surgery from 1000 to 1140 Alert/oriented. IVF NS infusing into the RAC as per MD orders. Small amount of drainageon mio pad Mio area swollen, reddened w/incision on right vulva Med w/torodol w/good relief. Call light w/in reach, bed alarm on for pt safety. Continue w/plan of care,
--- NOTE | 2022-01-03 16:37 | P.PN_ITS ---
Subjective Subjective Date Patient Seen: 01/03/22 Time Patient Seen: 14:00 Interval history: Patient is a 46-year-old postop day # 1 status post an incision and drainage and packing of a right labia majora abscess. She was taken back to the operating room today to remove the packing and replace it. The erythema is decreased. A sharpie was used to outline the area of erythema. She is on IV Zosyn. She is also on Diflucan for a yeast infection of the inguinal folds. Her pain is well controlled with Toradol. There was minimal bleeding when the packing was removed. A referral was made to the wound clinic and she tentatively has an appointment on January 11, 2022. Exam Vital Signs (past 8 hours): - 01/03/22 10:03 01/03/22 11:05 01/03/22 11:10 Temperature 97.6 F 96.7 F L Pulse Rate 78 90 89 Respiratory Rate 20 19 19 Blood Pressure 143/86 H 130/81 138/74 Pulse Oximetry 97 95 94 Oxygen Delivery Method Room Air Room Air Room Air Oxygen Flow Rate 01/03/22 11:15 01/03/22 11:20 01/03/22 11:25 Temperature 97.4 F L Pulse Rate 84 83 84 Respiratory Rate 19 18 20 Blood Pressure 133/95 H 140/83 135/81 Pulse Oximetry 95 94 95 Oxygen Delivery Method Room Air Room Air Room Air Oxygen Flow Rate 01/03/22 10:46 01/03/22 12:00 01/03/22 12:30 Temperature 98.0 F Pulse Rate 79 86 Respiratory Rate 20 18 Blood Pressure 140/86 149/91 H Pulse Oximetry 97 96 96 Oxygen Delivery Method Oxygen Flow Rate 0 0 01/03/22 13:00 01/03/22 16:00 Temperature Pulse Rate 83 Respiratory Rate 18 Blood Pressure 147/88 H Pulse Oximetry 98 96 Oxygen Delivery Method Oxygen Flow Rate 0 Oxygen Delivery Method Room Air Oxygen Flow Rate 0 Narrative Exam Narrative: Generally: Patient lying in bed, no acute distress Vulva: Still some erythema but decreased from yesterday pre procedure. No tenderness to touch. Objective Labs Result Diagrams: 01/03/22 05:45 01/02/22 10:50 Labs: Laboratory Results - last 24 hr 01/02/22 01/03/22 15:50 05:45 WBC 11.7 H RBC 4.86 Hgb 15.3 Hct 44.8 MCV 92.2 MCH 31.5 MCHC 34.2 RDW 13.8 Plt Count 202 Neut % (Auto) 63.4 Lymph % (Auto) 27.9 [place] % (Auto) 7.5 Eos % (Auto) 0.7 L Baso % (Auto) 0.5 Neut # (Auto) 7400 H Lymph # (Auto) 3300 [place] # (Auto) 900 Eos # (Auto) 100 Baso # (Auto) 100 Hemoglobin A1c 10.6 H PFSH Surgical History History of appendectomy Social History household members: spouse and family Smoking Status: Current every day smoker alcohol intake: current Assessment & Plan Post-op Postoperative Procedures: Procedures Operation Date: 01/02/22 12:00 Actual Procedure Side Surgeon p Incision and Drainage of Right Labial Abscess and Excision of Left labial Nevus Katie Gotti MD Operation Date: 01/03/22 10:15 Actual Procedure Side Surgeon p removal and exchange of packing from Right Labia Katie Gotti MD Operation Date: 01/04/22 12:45 <No data on this case meets the specified criteria> Postoperative day: 1 Postoperative status: doing well Postoperative status narrative: Will attempt to do a bedside packing changed tomorrow If not able to do at the bedside we tentatively have a spot in the operating room Will have to arrange daily packing changes until wound clinic appointment Wound clinic appointment January 11, 2022 Will add probiotics Quality VTE Deep Vein Thrombosis/Pulmonary Embolism Present on Admission: Yes
--- NOTE | 2022-01-03 16:52 | DIET.CONS ---
Dietary Consultation Note Admission Date: 01/03/2022 12:00 Assessment: 46y F admitted for I&D of vulvar abscess referred to nutrition for A1c 10.6. 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 Pt prescribed metformin 1,000mg bid, Victoza 0.6mg daily, and glipizide 10mg daily, however, pt not taking metformin secondary to GI distress. Pt reports good FBGs as 140-185 and bad FBG 195+. Pt with multiple I&D of vulva abscesses over the years as pt has hidradenitis. Pt has been working for the past few months at a [employer] with cyclic shift work- 12h rotating shifts with 6 days on, 3 days off. Pt states this has been stressful. Pt and spouse report healthful diet. Pt uses monkfruit in coffee in morning, meals are often protein with veg. Pt states downfall is full-sugar soda consumption. Pt a fan of Dr. Ortez, drinks more than 1 can daily (up to 4), which spouse states is vast improvement from 10y ago when pt only drank soda, no water. Now pt drinks 2L water daily. Pt excited to get referral to promotions executive producer at [facility]. Open to DM education at for support. Of note, pts body weight has dropped 8% since starting Victoza which is in line with potentially positive medication side effects. Ht: 160.02 cm Wt: 92.533 kg BMI: 36.1 UBW: 98-100kg Last BM: 01/02/22 (01/02/22 10:07) MNA: 11 Hayes Score: 22 Diet: 01/03/22 Lunch Carbohydrate Consistent Diet Diet Modifications: Carbohydrate level: Medium (3 CHO) Bedtime snack: Yes Nutrition Percent Meal Consumed 100% 01/03/22 13:00 Percent Meal Consumed 100% 01/02/22 17:27 Labs: RBC 4.86 X10^6/uL (4.0-5.2) 01/03/22 05:45 Hgb 15.3 g/dL (12.0-16.0) 01/03/22 05:45 Hct 44.8 % (36-46) 01/03/22 05:45 Creatinine 0.66 mg/dL (0.52-1.04) 01/02/22 10:50 Hemoglobin A1c 10.6 % (4.0-6.0) H 01/02/22 15:50 Nutrition Diagnosis: altered nutrition related laboratory values (A1c) r/t endocrine dysfunction and excessive intake simple carbohydrates aeb A1c 10.6 despite use of glipizide and victoza, pt admitted for I&D of abscess, pt reports daily consumption sugar-sweetened sodas. Interventions: 1. Using motivational interviewing and behavior change strategies-discussed intake sugar sweetened beverages. Discussed alternate options including mini 8oz can, diet version, stevia version, occasional use. Empathized with pt on difficulty of plater hot dip DM management and DM distress. Discussed sx chronic hyperglycemia and dramatically decreased sx once BGs normalized. 2. Educated pt and spouse on effects of BGs over 200 on immune function and healing. 3. Discussed supportive nutrition for wound healing including adequate protein, Vits A +C, zinc, food sources of each. 4. Reinforced pts enthusiasm for scheduling with promotions executive producer for more specialized care. Monitoring/Evaluations: following until d/c. DM Educator here happy to have referral to follow pt on outpatient basis. Electronically Signed by: Elsa Deshpande 01/03/22 16:52 Clinical Dietitian [id number] [place] [address]
[2022-01-03] MEDS: FLUoxetine 20 MG CAPSULE 40 MG PO (20:59)
[2022-01-03] MEDS: DOCUSATE 100 MG CAPSULE 200 MG PO (20:59)
[2022-01-04] MEDS: KETOROLAC 30 MG/ML VIAL IV ×2 (01:10→06:36)
[2022-01-04 01:14] VITALS: BP 152/80; PULSE 79; RESP 16; TEMP 37; O2SAT 96
[2022-01-04] MEDS: PIPERACILLIN/TAZO 3.375 GM in SODIUM CHLORIDE 0.9% 100 ML IV (04:45)
[2022-01-04] MEDS: OXYCODONE IR 5 MG TABLET 10 MG PO ×2 (05:48→09:33)
[2022-01-04 05:51] LABS: Add Manual Diff / Slide Review NO; Basophils Absolute Auto 0 /uL (0-100); Basophils Percent Auto 0.3 % (0-2); Eosinophils Absolute Auto 100 /uL (0-450); Eosinophils Percent Auto 0.8 % (2-4); Hematocrit 44.4 % (36-46); Hemoglobin 15.2 g/dL (12.0-16.0); Lymphocytes Absolute Auto 3300 /uL (1100-4500); Lymphocytes Percent Auto 27.8 % (25-40); Mean Corpuscular HGB Conc 34.3 % (30-36); Mean Corpuscular Hemoglobin 31.3 PG (26-34); Mean Corpuscular Volume 91.3 fL (80-100); Monocytes Absolute Auto 1000 /uL (0-900); Neutrophils Absolute Auto 7500 /uL (1500-7000); Neutrophils Percent Auto 63.1 % (50-75); Platelet Count 204 X10^3/uL (150-400); Red Blood Cell Count 4.87 X10^6/uL (4.0-5.2); Red Cell Distribution Width 13.8 % (11.6-14.8); White Blood Cell Count 11.9 X10^3/uL (4.5-11.0)
[2022-01-04 05:56] LABS: BUN Creatinine Ratio 18.5 (6-22); Blood Urea Nitrogen 10 mg/dL (7-17); Calcium 8.1 mg/dL (8.4-10.2); Carbon Dioxide 22 mmol/L (22-32); Chloride 106 mmol/L (98-107); Estimated Glomerular Filt Rate > 60 mL/min (>60); Glucose 180 mg/dL (70-100); HEMOLYSIS < 15 (0-50); Sodium 135 mmol/L (137-145)
[2022-01-04 05:58] VITALS: BP 160/95; PULSE 91; RESP 16; TEMP 36.6; O2SAT 97
[2022-01-04 06:41] VITALS: BP 153/91; PULSE 79
--- NOTE | 2022-01-04 08:00 | P.PN_ITS ---
Subjective Subjective Date Patient Seen: 01/04/22 Time Patient Seen: 11:00 Interval history: Patient underwent repeat wound dressing change with Dr. Gotti this morning and has been cleared to discharge. She feels well and is willing to take Lantus daily at home until she can get in with endocrine Exam Vital Signs (past 8 hours): - 01/04/22 01:14 01/04/22 05:58 01/04/22 06:41 Temperature 98.6 F 97.8 F Pulse Rate 79 91 H 79 Respiratory Rate 16 16 Blood Pressure 152/80 H 160/95 H 153/91 H Pulse Oximetry 96 97 Oxygen Flow Rate 0 0 Oxygen Delivery Method Room Air Oxygen Flow Rate 0 Narrative Exam Narrative: GEN: Adult female, pleasant, Alert and oriented x3, no acute distress HEENT: Normocephalic, face symmetric, pupils equal round reactive to light, extraocular movements intact, sclerae anicteric, conjunctiva clear, nares patent, oropharynx reveals an intact soft and hard palate with moist mucous membranes, dentition is fair, hirsutism is noted NECK: Supple, no lymphadenopathy, thyroid without enlargement or nodularity, carotids no bruits CHEST: Respiratory excursions symmetric, clear to auscultation bilaterally CV: Regular rate and rhythm, no murmurs, rubs, gallops, PMI difficult to palpate ABD: Soft, nontender, nondistended, bowel sounds present in all 4 quadrants, body habitus limits exam EXTR: Warm, well perfused, no clubbing/cyanosis/edema SKIN: Warm and dry, without rash, old scars from previous hidradenitis cyst in the ex the left, current abscess was not visualized NEURO: Alert and oriented x3, cranial nerves 2 through 12 are intact and symmetric bilaterally, motor strength 5/5 throughout, sensation intact throughout PSYCH: Mood and affect is within normal limits, judgment and insight are appropriate Objective Labs Result Diagrams: 01/04/22 05:15 01/04/22 05:15 Labs: Laboratory Results - last 24 hr 01/04/22 01/04/22 05:15 05:15 WBC 11.9 H RBC 4.87 Hgb 15.2 Hct 44.4 MCV 91.3 MCH 31.3 MCHC 34.3 RDW 13.8 Plt Count 204 Neut % (Auto) 63.1 Lymph % (Auto) 27.8 [place] % (Auto) 8.0 Eos % (Auto) 0.8 L Baso % (Auto) 0.3 Neut # (Auto) 7500 H Lymph # (Auto) 3300 [place] # (Auto) 1000 H Eos # (Auto) 100 Baso # (Auto) 0 Sodium 135 L Potassium 4.0 Chloride 106 Carbon Dioxide 22 BUN 10 Creatinine 0.54 Estimated GFR > 60 BUN/Creatinine Ratio 18.5 Glucose 180 H Calcium 8.1 L PFSH Surgical History History of appendectomy Social History household members: spouse and family Smoking Status: Current every day smoker alcohol intake: current Assessment & Plan Assessment & Plan narrative: 1. Hidradenitis suppurativa with a luis right labial abscess status post I&D On going antibiotics and treatment per Gynecology. She is currently receiving Zosyn therapy. White blood cell count 11.6. Appears nontoxic. Cultures pending. -gynecology to decide on outpatient antibiotics per culture results -wound care outpatient per gynecology 2. Diabetes mellitus type 2, treated with oral medication Presently uncontrolled with hyperglycemia. Glucose consistently elevated above 200s while inpatient but improved to 160/21 on 15 units of Lantus. -A1c 10.6% -script sent for lantus 15u daily based on 0.1-0.2 units/kilogram dosing -Diabetes education consulted and patient appreciated information -Recommend outpatient follow-up with endocrinology for ongoing DM2 management and obtaining CGM device. -metformin stopped as patient has not been taking it due to GI side effects -continue home glipizide and Victoza 3. Class 2 obesity BMI is 36.1. Would benefit from weight reduction. 4. Tobacco dependence Nicotine patch has been ordered. 5. Hyperlipidemia Continue atorvastatin. 6. Chronic neck pain with right arm paresthesia She has had a prior neck fusion. She reports some right arm Paresthesias which are chronic in nature. 7. Depression Continue outpatient dose of fluoxetine. Code status Full Medicine will sign off today. Thank you for allowing us to participate in the care of this patient. Should you have any further questions, do not hesitate to speak with us directly or call us. Time Spent With Patient Critical Care time: I spent a total of [] minutes of critical care time on this patient's care today; this time is exclusive of procedural time. Quality VTE Deep Vein Thrombosis/Pulmonary Embolism Present on Admission: Yes
[2022-01-04 10:00] VITALS: BP 163/78; PULSE 72; RESP 20; TEMP 36.7; O2SAT 95
[2022-01-04] MEDS: FLUoxetine 20 MG CAPSULE 40 MG PO (10:23)
[2022-01-04] MEDS: FLUCONAZOLE 100 MG TABLET PO (10:24)
[2022-01-04] MEDS: ATORVASTATIN 20 MG TABLET 40 MG PO (10:24)
--- NOTE | 2022-01-04 13:38 | PC.NURSE ---
Pt received discharge orders HL D/C intact. Home instructions given w/understanding Pt escorted by staff via W/C to waiting vehicle D/C in stable condition
[2022-01-04] MEDS: AMOXICILLIN/CLAV 875/125 MG 1 TAB PO (13:50)
--- NOTE | 2022-01-04 14:11 | CM.DPC ---
DCP Cont: Per MD, pt is medically stable for discharge. Pt to follow up with Dr. Gotti and for wound care pending pt wound care clinic appt for 01/11. Pt to d/c home via spouse POV. Kelsie Venegas RN/DCP
--- NOTE | 2022-01-07 14:40 | PM.DS.1 ---
History of Present Illness History of Present Illness Date Patient Seen: 01/04/22 Time Patient Seen: 09:30 Chief complaint: I&D OF VULVAR ABSCESS *OPB* Narrative: Patient is a 46-year-old 0 who presented with a right labial abscess. She underwent an incision and drainage of the right labial abscess under anesthesia on January 02, 2022. She was taken back to the operating room on January 03, 2022 for packing removal and change. On January 04, 2022 packing change was able to be done at the bedside. Patient was discharged home on oral antibiotics to follow up at 1 day for packing change. Discharge Providers Provider Date of admission: 01/03/22 12:00 Discharge Date: 01/04/22 Primary care physician: Skylar Cespedes ND Consults: 01/02/22 15:52 Consult to Dietitian, Adult Routine Comment: Reason For Exam: Uncontrolled DM2 Consult to Respiratory Therapy Routine Comment: Physician Instructions: Evaluate and treat 01/03/22 12:12 Consult to Dietitian, Adult Routine Comment: Reason For Exam: diabetes education, A1c 10.6% 01/03/22 12:37 Consult to Dietitian, Adult Urgent Comment: Reason For Exam: Right labial abscess in uncontrolled diabetic, Consult to Wound Care Routine Comment: Consulting Provider: [facility] Discharge provider: Katie Gotti MD Summary Hospital Course Discharge Diagnosis: Right labia minora abscess Incision and drainage and packing of right labia minora abscess IV antibiotics Hospital Course: Patient is a 46-year-old 0 who presented on January 02, 2022 with a right labial abscess. She was taken to the operating room on the same day for an incision and drainage of a large abscess. The area was irrigated and then packed. She was admitted to the hospital for IV antibiotics. She was taken back to the operating room the next day on January 03, 2022 for a packing change. On January 04, 2022 the packing change was able to be done at the bedside. She was discharged home to follow-up at 1 day in the office for packing change. Status at Discharge Cognitive/behavioral status at discharge: oriented Functional status at discharge: independent ambulation Overall status at discharge: patient is progressing back to baseline Time Spent with Patient Time spent: Less than 30 minutes Time spent discussing smoking cessation with patient: 3 to 10 minutes Exam Vital Signs (past 8 hours): Oxygen Delivery Method Room Air Oxygen Flow Rate 0 Narrative Exam Narrative: Generally: Patient lying in bed, no acute distress Perineum: There is decreased erythema of the right labia minora. Packing is removed. 1 in iodoform approximately 8 in were placed into the cavity. A 2 in wake was left outside of the labia. Objective Labs Result Diagrams: 01/04/22 05:15 01/04/22 05:15 [facility] Surgical History History of appendectomy Social History household members: spouse and family Smoking Status: Current every day smoker alcohol intake: current Discharge Assessment & Plan Assessment and Plan Assessment: 46-year-old 0 with a right labia minora abscess, status post I&D and packing of the abscess Plan of Treatment: Discharge to home on oral Augmentin Follow-up 1 day for packing change in the office Discharge Plan Discharge Plan Patient Disposition: Home Provider Discharge Comment: Call with fever, chills, or worsening pain Tylenol 650 mg every 6 hours as needed Ibuprofen 600 mg every 6 hours as needed Discharge orders & Medications Prescriptions: New insulin glargine [Lantus Solostar U-100 Insulin] 100 unit/mL (3 mL) Insulin Pen 15 unit SUBCUT DAILY Qty: 15 0RF Rx Instructions: Inject 15 units into fat of belly once daily. amoxicillin-pot clavulanate 875-125 mg tablet 1 tab PO BID Qty: 20 0RF fluconazole [Diflucan] 100 mg tablet 100 mg PO DAILY Qty: 10 0RF oxycodone 5 mg tablet 5 mg PO Q6H PRN (Reason: pain) Qty: 20 0RF Probiotic 20 billion cell capsule 20,000 mmu cells PO DAILY Qty: 30 2RF Rx Instructions: administer with a meal Continued doxycycline hyclate 100 mg capsule 100 mg PO BID Qty: 60 2RF Rx Instructions: Take 2x daily for 12 weeks. ibuprofen 800 mg tablet 800 mg PO TID PRN (Reason: Pain (Scale Score 4-6)) ergocalciferol (vitamin D2) 1,250 mcg (50,000 unit) capsule 1,250 mcg PO QWEEK acetaminophen 500 mg tablet 500 mg PO Q6H PRN (Reason: Pain (Scale Score 1-3)) atorvastatin 40 mg tablet 40 mg PO DAILY clotrimazole-betamethasone 1-0.05 % cream 1 applictn TOP BID cyclobenzaprine 5 mg tablet 5 mg PO TID PRN (Reason: Pain (Scale Score 1-3)) fluoxetine 40 mg capsule 40 mg PO BID Rx Instructions: administer in the morning and at noon/midday glipizide 10 mg tablet 10 mg PO DAILY omeprazole 20 mg capsule,delayed release(DR/EC) 20 mg PO BID PRN (Reason: Indigestion) Victoza 2-Jerel 0.6 mg/0.1 mL (18 mg/3 mL) pen injector 0.6 mg SUBCUT DAILY gabapentin 300 mg capsule 300 mg PO TID PRN (Reason: Pain (Scale Score 1-3)) clindamycin phosphate 1 % gel 1 applictn TOP BID Qty: 30 0RF Rx Instructions: Applied to inguinal folds twice daily for 3 months. oxycodone 5 mg tablet 5 mg PO Q6H PRN (Reason: pain) Qty: 10 0RF Rx Instructions: Take 1-2 tabs as needed for pain. Discontinued metformin 500 mg tablet 1,000 mg PO BID sulfamethoxazole-trimethoprim 800-160 mg tablet 1 tab PO BID Follow up/Referrals: Katie Gotti MD [Physician] - 1 Day (Packing change 01/05/22 at 1445) Akash Gibson MD [Physician] - (Wound clinic is reserving spot for this patient on January 11- exact time at 2:15 pm ) Lino James DO [Non-Staff] - 2 Weeks (Needs new urgent appt for diabetes management.) Diet/Activity/Treatments Diet: Regular Activity: As tolerated Skin/Wound/Dressing Care Report to your healthcare provider any signs of infection, such as:: chills, fever, increased pain, unusual drainage and unusual redness Dressing: Leave packing in place Visit Report/Discharge Packet Instructions: DI for Prescription Opioid Use, DI for Incision and Drainage Stand Alone Forms: Surgery Discharge Discharge Data Primary Care Provider: Skylar Cespedes Attending Provider: Katie Gotti Quality VTE Deep Vein Thrombosis/Pulmonary Embolism Present on Admission: Yes
== END 2022-01-04 13:55 | disposition home or self-care (01) ==
LOC: OR 13:26 → AC 13:26
PROVIDERS: Family Medicine; Student in an Organized Health Care Education/Training Program; Admitting Provider Obstetrics & Gynecology; PCP Naturopath; Referring Provider Obstetrics & Gynecology; Visit Provider Obstetrics & Gynecology
PROC: (CPT 56405; principal; 2022-01-02 12:00)
DX: N76.4 Abscess of vulva (principal); B96.89 Other specified bacterial agents as the cause of diseases classified elsewhere; L82.1 Other seborrheic keratosis; L73.2 Hidradenitis suppurativa; E11.9 Type 2 diabetes mellitus without complications; Z79.84 Long term (current) use of oral hypoglycemic drugs; E66.9 Obesity, unspecified; Z68.36 Body mass index [BMI] 36.0-36.9, adult; F32.A Depression, unspecified; M54.2 Cervicalgia; R20.2 Paresthesia of skin; F17.210 Nicotine dependence, cigarettes, uncomplicated; Z20.822 Contact with and (suspected) exposure to COVID-19
CPT/HCPCS: 56405; 11422; 36415; 80048; 80053; 82962; 83036; 85025; 87070; 87075; 87205; G0378; J0171; J0330; J1815; J1885; J2250; J2405; J2543; J2704; J3010; J7613

== ENCOUNTER 2022-05-28 17:05 | Day surgery (SDC) | payer BC, OTHER, MEDICAID, SELFPAY ==
[2022-01-02 10:07] VITALS: BMI 36.1
--- NOTE | 2022-05-28 17:17 | PM.HP.1 ---
History of Present Illness History of Present Illness Date Patient Seen: 05/28/22 Time Patient Seen: 18:17 Chief complaint: I&D OF VULVAR ABSCESS Narrative: Patient is a 46-year-old 0 with a right upper thigh/inguinal abscess. Patient had a significant vulvar abscess a few months ago and was found to have a hemoglobin A1c of 11. Her current hemoglobin A1c is 7.5. She noticed that this started as a cyst on her upper thigh/groin on the right side. It has been getting bigger and more painful. No fever or chills. Patient History Surgical History History of appendectomy Family & Social History Social History: household members spouse,family Tobacco & Substance use: Smoking Status Current every day smoker alcohol intake current alcohol intake frequency holiday/special occasion Substance Use Type does not use Meds Home Medications and Allergies Home Medications Medication Instructions Recorded Confirmed Type acetaminophen 500 mg tablet 500 mg PO Q6H PRN Pain (Scale 01/13/20 05/28/22 History Score 1-3) clotrimazole-betamethasone 1 1 applictn topical BID 01/13/20 05/28/22 History %-0.05 % topical cream cyclobenzaprine 5 mg tablet 5 mg PO TID PRN Pain (Scale Score 01/13/20 05/28/22 History 1-3) ergocalciferol (vitamin D2) 1,250 1,250 mcg PO QWEEK 01/13/20 05/28/22 History mcg (50,000 unit) capsule fluoxetine 40 mg capsule 40 mg PO BID 01/13/20 05/28/22 History gabapentin 300 mg capsule 300 mg PO TID PRN Pain (Scale 01/13/20 05/28/22 History Score 1-3) glipizide 10 mg tablet 10 mg PO DAILY 01/13/20 05/28/22 History ibuprofen 800 mg tablet 800 mg PO TID PRN Pain (Scale 01/13/20 05/28/22 History Score 4-6) liraglutide 0.6 mg/0.1 mL (18 mg/3 0.6 mg SUBCUT DAILY 01/13/20 05/28/22 History mL) subcutaneous pen injector (Victoza 2-Jerel) omeprazole 20 mg capsule,delayed 20 mg PO BID PRN Indigestion 01/13/20 05/28/22 History release clindamycin phosphate 1 % topical 1 applictn topical BID 01/19/20 05/28/22 Rx gel Hidradenitis suppurativa #30 grams doxycycline hyclate 100 mg capsule 100 mg PO BID hidradenitis 01/23/20 05/28/22 Rx supperativa #60 caps fluconazole 100 mg tablet 100 mg PO DAILY #10 tabs 01/04/22 05/28/22 Rx (Diflucan) insulin glargine 100 unit/mL (3 15 unit (0.15 mL) SUBCUT DAILY #15 01/04/22 05/28/22 Rx mL) subcutaneous pen (Lantus mL Solostar U-100 Insulin) lactobacillus comb no.10 20 20,000 mmu cells PO DAILY #30 caps 01/04/22 05/28/22 Rx billion cell capsule (Probiotic) ondansetron 4 mg disintegrating 4 mg PO Q6H PRN nausea and 01/08/22 05/28/22 Rx tablet vomiting #14 tabs amoxicillin 875 mg-potassium 1 tab PO BID Infection #14 tabs 02/02/22 05/28/22 Rx clavulanate 125 mg tablet oxycodone 5 mg tablet 5 mg PO Q6H PRN pain #20 tabs 02/02/22 05/28/22 Rx clindamycin phosphate 1 % topical 1 applic topical BEDTIME #60 mL 03/06/22 05/28/22 Rx solution (Cleocin T) famotidine 20 mg tablet 20 mg PO BID 05/28/22 05/28/22 History oxycodone 5 mg tablet 5 mg PO Q4H PRN pain #20 tabs 05/28/22 Rx rosuvastatin 10 mg tablet 10 mg PO DAILY 05/28/22 05/28/22 History Allergies Allergy/AdvReac Type Severity Reaction Status Date / Time morphine AdvReac Dysphoric Verified 05/28/22 18:14 Exam Narrative Exam Narrative: Generally: No acute distress Lungs: Clear to auscultation bilaterally Cardiovascular: Regular rate and rhythm External genitalia: On the right upper thigh/groin area there is a 5 cm x 3 cm indurated area with fluctuance. This is painful to touch. Just below the labia minora on the right side there is a 1.5 x 1 cm firm mass. Extremities: Trace edema Assessment & Plan Assessment & Plan narrative: Assessment: 46-year-old 0 with a right upper thigh/groin abscess Mass below the right labia minora Diabetic Plan: Incision and drainage of the abscesses, with possible packing The risks, benefits, and alternatives to the procedure were explained to the patient. The risks including bleeding and infection. She understands these risks and agrees to proceed. A full par Q was held and consent form was signed. COVID-19 COVID-19 status: Negative Result date/Date tested (Pos, Neg/Pending): 05/28/22 Time Spent With Patient Time with patient: less than 30 minutes Critical Care time: I spent a total of [] minutes of critical care time on this patient's care today; this time is exclusive of procedural time.
--- NOTE | 2022-05-28 17:20 | PM.PREOP ---
Pre-operative Note COVID-19 COVID-19 status: Negative Result date/Date tested (Pos, Neg/Pending): 05/28/22 Criteria for continued procedure: Non-surgical alternatives not available or appropriate per current SOC Interval Note History & Physical reviewed/Exam performed by Physician: Yes Changes to H&P: No H&P completed within 30 days and has changed as indicated here:: 05/28/22
[2022-05-28 17:32] VITALS: BMI 36.8
[2022-05-28 17:48] LABS: COVID19 -Nasal RAPID Negative (Negative)
--- NOTE | 2022-05-28 18:00 | SUR.OPER ---
Lithotomy on padded OR bed, head on pillow, arms secured on padded arm boards at <90 degrees abduction. Legs secured in padded yellow fins stirrups.
[2022-05-28 18:01] VITALS: BP 145/89; PULSE 98; RESP 16; TEMP 36.6; O2SAT 97
[2022-05-28] MEDS: LACTATED RINGERS 1,000 ML 100 ML IV (18:11)
[2022-05-28] MEDS: CEFAZOLIN 3 GM IN 0.9 % NACL 3 GM/100 ML PLAST..BAG IV (19:00)
--- NOTE | 2022-05-28 20:21 | PM.GYNOP.1 ---
Operative Date/Time/Diagnoses Date of procedure: 05/28/22 Time of procedure: 20:21 Pre-op diagnosis: Right upper thigh/groin abscess Right lower labial abscess Post-op diagnosis: same Procedure & Clinicians Procedure: Procedures Operation Date: 05/28/22 18:00 Actual Procedure Side Surgeon p Incision and Drainage of vulvar abscess Not Applicable Katie Gotti MD Indications: Right upper thigh/groin induration with abscess Surgeon: Katie Gotti Anesthesia Type: General (Endotracheal) Operative Notes Findings: 5 cm x 3 cm right upper thigh/groin abscess 2 cm x 1 and 0.5 cm right lower labial minora abscess Closure Type: not applicable Specimen(s): other (Cultures of wound) Estimated blood loss (mL): 15 Blood products transfused: none Procedure in detail: After informed consent was obtained, the patient was taken to the operating room where she was placed in the dorsal supine position. After adequate general endotracheal anesthesia was achieved, she was placed in the dorsal lithotomy position, and prepped and draped in the usual sterile fashion. A time-out was performed. A 2 cm incision was made over the indurated area of the right upper thigh. A large amount of pus extruded from the wound. Cultures were taken. The area was irrigated with 300 cc of sterile saline. The wound was packed with approximately 7 cm of 1/2 inch Nu Gauze with iodoform. A second area on the lower edge of the right labia minora was fluctuant. A small 1 cm incision was made. Small amount of pus extruded from this area. The wound was irrigated with sterile saline. The wound was packed with 3 cm of half-inch iodoform. Hemostasis was achieved. Sponge, lap, and instrument counts were correct x2. The patient tolerated the procedure well, and was taken to PACU in stable condition. Complications: none Post-operative Condition: stable Disposition: PACU Plan for aftercare: Home after recovery
[2022-05-28 20:25] VITALS: BP 148/94; PULSE 111; RESP 20; TEMP 36.6; O2SAT 93
[2022-05-28 20:30] VITALS: BP 158/92; PULSE 109; RESP 16; O2SAT 94
[2022-05-28] MEDS: OXYCODONE/ACETAMINOPHEN 5/325 TABLET 1 TAB PO (20:37)
[2022-05-28 20:40] VITALS: BP 146/93; PULSE 104; RESP 17; O2SAT 94
== END 2022-05-28 20:56 | disposition home or self-care (01) ==
PROVIDERS: PCP Naturopath; Referring Provider Obstetrics & Gynecology; Visit Provider Obstetrics & Gynecology
PROC: (CPT 56405; principal; 2022-05-28 18:00)
DX: N76.4 Abscess of vulva (principal); Z20.822 Contact with and (suspected) exposure to COVID-19
CPT/HCPCS: 56405 ×2; 82962; 87070; 87075; 87205; 87635; C9803; J0330; J0690; J2405; J2704; J3010

== ENCOUNTER → 2022-06-25 13:27 | Outpatient (CLI) | payer BC, OTHER, SELFPAY ==
[2022-01-02 10:07] VITALS: BMI 36.1
== END ==
PROVIDERS: PCP Naturopath; Visit Provider Obstetrics & Gynecology
DX: L02.415 Cutaneous abscess of right lower limb (principal)
CPT/HCPCS: 87070; 87075; 87205